=== PATIENT | male | born 1960 | race Caucasian/White ===

== ENCOUNTER → 2020-09-29 | Outpatient (CLI) | payer OTHER ==
[~2020-09-29] MED LIST: ASPI81TA59 PO; ATOR40TA59 PO; IBUP600T16 PO; METF500T16 PO
== END ==
LOC: LAB 10:05
PROVIDERS: ATTEND Nurse Anesthetist, Certified Registered
DX: Z01.812 Encounter for preprocedural laboratory examination (principal)
CPT/HCPCS: U0003

== ENCOUNTER → 2020-10-03 | Day surgery (SDC) | payer OTHER ==
[~2020-10-03] MED LIST changes: +BALANCED SALT IRRIG OPHTH SOLN 15 ML BOTTLE. IRR ONE; +CATARACT OPHTH GEL 0.5 ML SYRINGE. OD ONE; +CHONDROIT-SOD-HYALURONATE KIT. OD ONE; +EPINEPHrine AMPULE 0.5 MG in BALANCED SALT IRRIG SOLN PLUS 500 ML IO ONE; +ERYTHROMYCIN 0.5% OPHTH OINTMENT 1GM TUBE. OD ONE; +HYALURONIDASE 75UNITS in LIDOCAINE 2% PF OPHTH 10 ML SYRINGE. OD ONE; +IPRATRPIUM/ALBUTEROL 0.5/2.5MG 3 ML NEBU. NEB PRN; +IV RINGERS SOLUTION,LACTATED 1,000 ML IV SCH; +KETOROLAC TROMETHAMINE 0.5% OPHTH SOLUTION BOTTLE. OD SCH; +MIDAZOLAM HCL PF 2 MG/2 ML VIAL. IV ONE; +MOXIFLOXACIN 0.5% OPHTH SOLUTION 3ML BOTTLE. OD SCH; +ONDANSETRON PF 4 MG/2 ML VIAL. IV PRN; +POVIDONE-IODINE 5% OPHTH SOLUTION 30ML BOTTLE. OD ONE; +PROPOFOL 10,000 MCG/ML (20ML) VIAL IV ONE; +TETRACAINE 0.5% OPHTH SOLUTION 4ML BOTTLE. OD ONE; +TETRACAINE 0.5% OPHTH SOLUTION 4ML BOTTLE. OU ONE; +prednisoLONE ACETATE 1% OPHTH SUSPENSION 5ML BOTTLE. OD SCH
[2020-10-03] MEDS: MOXIFLOXACIN 0.5% OPHTH SOLUTION 3ML BOTTLE. OD SCH ×3 (08:35→08:44)
[2020-10-03 09:48] VITALS: BP 136/83
--- NOTE | 2020-10-03 09:50 | PDOC4 ---
Phaco IOL/LRI OD Date of Procedure: Oct 03, 2020 Preoperative Diagnosis: 1. Senile cataract, OD 2. Astigmatism, OD Postoperative Diagnosis: 1. Senile cataract, OD 2. Astigmatism, OD Anesthesia: Anesthesia: Local with monitored anesthesia care Surgeon: Selvin Orr D.O. Procedure: Phacoemulsification with intraocular lens implant, OD Paired Limbal Relaxing Incisions 40 degrees at 130 degrees, OD Findings: 1. Senile Cataract, OD 2. Astigmatism, OD Indications: Worsening vision interfering with patient's lifestyle Narrative: Narrative: The risks, complications and alternatives, including but not limited to loss of vision, infection, bleeding, swelling, anesthetic reaction, capsule rupture with vitreous loss, etc., were discussed with the patient. Topical anesthetic was instilled in the eye. The patient was placed in the seated position and the cornea was marked at the 3, 6 and 9 o'clock position. A peribulbar injection was given with a 50/50 mixture of lidocaine and Marcaine. A [place] Balloon was placed for 10 minutes. The patient was transferred to the main operating room and was prepped and draped in the usual sterile fashion and positioned under the microscope. A lid speculum was placed. Paired limbal relaxing incisions were made at the appropriate corneal meridian. A temporal clear corneal incision was made with a keratome. Viscoelastic was injected into the eye. A side port incision was made. A continuous tear capsulorrhexis was performed, then hydrodissection was accomplished with balanced salt solution. The phacoemulsification needle was placed in the eye and the nucleus was emulsified. The remaining cortical material was removed with the irrigation and the aspiration apparatus. The capsule was polished as needed. The posterior capsule was noted to be clean and intact. Viscoelastic was injected into the eye inflating the capsular bag. An intraocular lens was injected into the eye, un folding as desired and was positioned in the capsular bag. The viscoelastic was aspirated from the eye. The wound edges were hydrated with balanced salt solution and there were no leaks. Viscoelastic was injected over the limbal incisions. Antibiotic and steroid were placed on the eye. The lid speculum was removed and a patch and Parry shield applied. There were no complications and the patient was taken to the PACU in good condition. SELVIN ORR DO Oct 03, 2020 09:50
== END | disposition home or self-care (01) ==
LOC: SURG 07:59 → EDUNIT# 09:30
PROVIDERS: ATTEND Ophthalmology
DX: H25.11 Age-related nuclear cataract, right eye (principal); E11.40 Type 2 diabetes mellitus with diabetic neuropathy, unspecified; E78.00 Pure hypercholesterolemia, unspecified; G47.33 Obstructive sleep apnea (adult) (pediatric); F17.210 Nicotine dependence, cigarettes, uncomplicated; M19.90 Unspecified osteoarthritis, unspecified site; Z79.899 Other long term (current) drug therapy; Z79.82 Long term (current) use of aspirin; Z79.84 Long term (current) use of oral hypoglycemic drugs; Z98.890 Other specified postprocedural states
CPT/HCPCS: 66982; 82947; J0171; J2704; V2632